=== PATIENT | female | born 1935 | race Caucasian/White ===

== ENCOUNTER 2020-06-01 10:31 | Emergency (ER) | payer MEDICARE, OTHER ==
[2020-06-01 10:42] VITALS: O2SAT 97
--- NOTE | 2020-06-01 10:56 | ERPHSYRPT ---
- History of Present Illness Time Seen by Provider: 06/01/20 10:53 Source: patient Exam Limitations: no limitations Patient Subjective Stated Complaint: L hip pain Triage Nursing Assessment: pt to ED c/o L hip pain rates 08/09. states hip replaced years ago and "it is causing me trouble now." no shortening or rotation noted. no bruising or other signs of injury. denies fall or any trauma to area. has appt scheduled for Tuesday with CJ Ewing. ambulatory with assistance. ambulates with a cane normally. pain worsening with ambulation. Physician History: Left hip pain for few days. c/o L hip pain rates 08/09. states hip replaced years ago and "it is causing me trouble now." no shortening or rotation noted. no bruising or other signs of injury. denies fall or any trauma to area. has appt scheduled for Tuesday with CJ Ewing. ambulatory with assistance. ambulates with a cane normally. pain worsening with ambulation. Method of Injury: unknown Occurred: last week Quality: constant Severity of Pain-Max: moderate Severity of Pain-Current: moderate Lower Extremities Pain: hip: left Modifying Factors: Improves With: nothing Associated Symptoms: none Allergies/Adverse Reactions: Iodinated Contrast Media Allergy (Verified 06/01/20 10:50) iodine Allergy (Verified 06/01/20 10:50) Penicillins Allergy (Verified 06/01/20 10:50) Home Medications: Alprazolam [Xanax] 0.5 mg PO [id number] PRN 06/01/20 [History] Aspirin 81 gm Chew [Baby Aspirin 81 mg Chew] 81 mg PO DAILY 06/01/20 [History] Carvedilol 25 mg PO BID 06/01/20 [History] Escitalopram Oxalate 10 mg [Lexapro 10 MG] 10 mg PO DAILY 06/01/20 [History] Furosemide 40 mg [Lasix 40 MG] 40 mg PO DAILY 06/01/20 [History] Isosorbide Mononitrate 30 mg PO DAILY 06/01/20 [History] Spironolact/Hydrochlorothiazid [Spironolactone-Hctz 25-25 Tab] 25 mg PO DAILY 06/01/20 [History] Hx Tetanus, Diphtheria Vaccination/Date Given: Yes Hx Influenza Vaccination/Date Given: Yes Hx Pneumococcal Vaccination/Date Given: No Immunizations Up to Date: Yes Travel Risk - International Travel Have you traveled outside of the country in past 3 weeks: No - Coronavirus Screening Are you exhibiting any of the following symptoms?: No Close contact with a COVID-19 positive Pt in past 14-21 Days: No - Review of Systems Constitutional: No Symptoms Eyes: No Symptoms Ears, Nose, & Throat: No Symptoms Respiratory: No Symptoms Cardiac: No Symptoms Abdominal/Gastrointestinal: No Symptoms Genitourinary Symptoms: No Symptoms Musculoskeletal: Arthralgias, Joint Pain (left hip), No Back Pain, No Deformity, No Fall, No Injury, No Joint Redness, No Joint Swelling - Past Medical History Neurological History: No Pertinent History Cardiac History: Coronary Artery Disease, High Cholesterol, Hypertension Respiratory History: No Pertinent History Endocrine Medical History: No Pertinent History Musculoskeletal History: Osteoarthritis, Other Other Medical History: 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 HX OF CARDIAC STENT X 1, CHOLECYSTECOMY, LEFT THR 2016, LUMBAR FUSION - Past Surgical History Past Surgical History: Yes Musculoskeletal: Joint Replacement, Orthopedic Surgery Other Surgical History: L hip - Social History Smoking Status: Never smoker Exposure to second hand smoke: No Drug Use: none Patient Lives Alone: No - Female History Hx Now: No - Nursing Vital Signs Nursing Vital Signs: Initial Vital Signs Temperature 98.2 F 06/01/20 10:34 Pulse Rate 72 06/01/20 10:34 Respiratory Rate 17 06/01/20 10:34 Blood Pressure 102/40 06/01/20 10:34 O2 Sat by Pulse Oximetry 97 06/01/20 10:34 Pain Scale Pain Intensity 10 - Physical Exam General Appearance: no apparent distress Eyes, Ears, Nose, Throat Exam: normal ENT inspection Neck Exam: normal inspection Cardiovascular/Respiratory Exam: chest non-tender Gastrointestinal/Abdominal Exam: non-tender Back Exam: normal inspection Hips Exam: left: pain, soft tissue tenderness Legs Exam: bilateral leg: non-tender Knees Exam: bilateral knee: non-tender Ankle Exam: bilateral ankle: non-tender Foot Exam: bilateral foot: non-tender DTR - Lower Extremities Exam: knee (R): 2+, knee (L): 2+, ankle (R): 2+, ankle (L): 2+ Neuro/Tendon Exam: normal sensation Mental Status Exam: alert, oriented x 3 Skin Exam: normal color SpO2 Interpretation: normal SpO2: 97 O2 Delivery: Room Air - Course Nursing assessment & vital signs reviewed: Yes - Radiology Exams Hip X-ray Interpretation: Reviewed by me, Negative, No Fracture, No Subluxation Ordered Tests: Active Orders 24 hr Category Date Time Status HIP UNI (2V) INCL PEL IF DONE Stat Exams 06/01/20 10:44 Taken - Progress Progress: unchanged, pain not gone completely Counseled pt/family regarding: diagnosis, need for follow-up, rad results - Departure Departure Disposition: Home Clinical Impression: Chronic left hip pain Condition: Stable Critical Care Time: No Referrals: GABRIEL HUNTER MD [Primary Care Provider] - [facility] [id number] Instructions: Contusion (DC), Hip Pain in Older People Additional Instructions: Discharge/Care Plan RAJANI HO was seen on 06/01/20 in the Emergency Room. The patient was counseled regarding Diagnosis,Lab results, Imaging studies, need for follow up and when to return to the Emergency Room. Prescriptions given: Discharge Note I have spoken with the patient and/or caregivers. I have explained the patient's condition, diagnosis and treatment plan based on the information available to me at this time. I have answered the patient's and/or caregiver's questions and addressed any concerns. The patient and/or caregivers have as good understanding of the patient's diagnosis, condition and treatment plan as can be expected at this point. The vital signs have been stable. The patient's condition is stable and appropriate for discharge from the emergency department. The patient will pursue further outpatient evaluation with the primary care physician or other designated or consulting physician as outlined in the discharge instructions. The patient and/or caregivers are agreeable to this plan of care and follow-up instructions have been explained in detail. The patient and/or caregivers have received these instruction. The patient/and or caregivers are aware that any significant change in condition or worsening of symptoms should prompt an immediate return to this or the closest emergency department or call 911. RAJANI HO was seen on 06/01/20 n the Emergency Room. At that time you were treated for an emergent condition, during your visit Laboratory, Radiology and/or other procedures may have been ordered. It is very important that you follow-up with your Primary Care Physician GABRIEL HUNTER V within the next 24-48 hours to review your Emergency Room visit and the final results of testing that was ordered. Some test results such as Urine Cultures, Blood Cultures, and other cultures if ordered will not be finalized for 24-48 hours. If you do not have a Primary Care Provider please call the medical records department at [phone] ext [phone] to obtain a copy of your results or you may sign into our patient portal to obtain these results by visiting us @ [email or web address] and completing the following steps: 1. Click on the Patient Portal link 2. Click the Patient Self Enrollment Link to complete the enrollment form and entering your 3. Once the enrollment form is completed you will receive an email with a temporary ID and password at the email address you provided. 4. Next choose a user name and password. Your user name must be at least 4 characters long and your password must be at least 4 characters long. 5. Choose a security question from the list and provide your answer to the question. If you already have signed into the Health Portal you may access your Health Care Information 23/05 by the following steps: 1. Login to our website @ [email or web address] 2. Enter your original user name and password. FAQS The [facility] Health Portal is an online tool that contains your Lab Results, Radiology Reports, Visit History, Discharge Instructions and Health Summary Lab and Radiology Results will not be available for 72 hours on the portal. The Portal is a secure site, passwords are encryted and URLs are re-written so they cannot be copied and pasted. You and authorized family members are the only ones who can access your Portal. Also there is a timeout feature that protects your information if you leave the Portal page open. If you have technical difficulty please use the Contact Us link on the page this will allow you to submit any questions you have regarding the Portal or you may contact the Medical Record Department at [phone] ext [phone].
[2020-06-01] MEDS ORDERED: TORAdol 30 mg Injection IM ONE (11:16)
[2020-06-01] MEDS ORDERED: TORAdol 30 mg Injection ONE (11:43)
[2020-06-01 11:50] VITALS: BP 150/66; PULSE 70
--- NOTE | 2020-06-01 20:07 | XRAY ---
Indication: Chronic left hip pain. Comparison: October 04, 2019. 2 view left hip again demonstrates total hip arthroplasty with intact bipolar prosthesis/acetabular screw, osteopenia, greater trochanter spurring, and lower lumbar fusion hardware. No new/acute bony, articular, or soft tissue abnormalities.
== END 2020-06-01 12:17 | disposition home or self-care (01) ==
LOC: ED 10:31
DX: M25.552 Pain in left hip (principal); G89.29 Other chronic pain; F45.42 Pain disorder with related psychological factors; Z96.642 Presence of left artificial hip joint
CPT/HCPCS: 73502; 96372; 99284; J1885

== ENCOUNTER 2022-04-18 12:23 | Emergency (ER) | payer MEDICARE, OTHER ==
[2022-04-18 12:38] VITALS: BP 195/95; PULSE 75; O2SAT 97
[2022-04-18] MEDS ORDERED: Adacel Vial IM ONE ×2 (13:22→13:24)
--- NOTE | 2022-04-18 13:24 | ERPHSYRPT ---
- History of Present Illness Time Seen by Provider: 04/18/22 12:27 Source: patient Exam Limitations: no limitations Patient Subjective Stated Complaint: Animal bite- racoon bite Triage Nursing Assessment: Patient ambulated back to ED with cane and sat on side of bed. Patient A+O X 3. Patient's skin pink, warm and dry. Patient complains of being bit on left hand, 3rd digit by a racoon. Patient was capturing the racoon to move to a different location when it bit her through the cage. Patient has small laceration 0.1 cm X 0.1cm noted to left hand 3rd digit. Patient complains of pain 2/10. Patient states the racoon is still alive and is in her car in a cage. Physician History: 86-year-old female unsure about tetanus status right-handed dominant presented in the ER after she was transporting raccoon in the cage and accidentally got bit on the left third/middle finger with a puncture wound. Minimal bleeding initially but no bleeding currently. Complaining of dull aching to sharp mild pain with palpation and movements. No bites anywhere else. Timing/Duration: today, resolved prior to arrival Quality: painful Severity: mild Location: hands Possible Causes: other Associated Symptoms: denies symptoms Allergies/Adverse Reactions: Iodinated Contrast Media Allergy (Verified 04/18/22 12:27) iodine Allergy (Verified 04/18/22 12:27) Penicillins Allergy (Verified 04/18/22 12:27) Home Medications: ALPRAZolam [Xanax] 0.5 mg PO [id number] PRN 06/01/20 [History] Aspirin 81 gm Chew [Baby Aspirin 81 mg Chew] 81 mg PO DAILY 06/01/20 [History] Escitalopram Oxalate [Lexapro 10 MG] 10 mg PO DAILY 06/01/20 [History] Furosemide 40 mg [Lasix 40 MG] 40 mg PO DAILY 06/01/20 [History] Isosorbide Mononitrate 30 mg PO DAILY 06/01/20 [History] Spironolact/Hydrochlorothiazid [Spironolactone-Hctz 25-25 Tab] 25 mg PO DAILY 06/01/20 [History] carvediloL [Carvedilol] 25 mg PO BID 06/01/20 [History] Hx Tetanus, Diphtheria Vaccination/Date Given: No Hx Influenza Vaccination/Date Given: Yes Hx Pneumococcal Vaccination/Date Given: No Immunizations Up to Date: Yes Travel Risk - International Travel Have you traveled outside of the country in past 3 weeks: No - Coronavirus Screening Are you exhibiting any of the following symptoms?: No Close contact with a COVID-19 positive Pt in past 14-21 Days: No - Vaccine Status Have you recieved a Covid-19 vaccination: Yes Multi [employer]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: Moderna - Vaccination Dates Date of 2cond Vaccination (if applicable): na - Review of Systems Constitutional: No Symptoms Respiratory: No Symptoms Cardiac: No Symptoms Abdominal/Gastrointestinal: No Symptoms Musculoskeletal: Injury Skin: Skin Lesions Neurological: No Symptoms Hematologic/Lymphatic: No Symptoms Immunological/Allergic: No Symptoms - Past Medical History Neurological History: No Pertinent History Cardiac History: Coronary Artery Disease, High Cholesterol, Hypertension Respiratory History: No Pertinent History Endocrine Medical History: Diabetes Type II Musculoskeletal History: Arthritis, Osteoporosis Other Medical History: 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 HX OF CARDIAC STENT X 1, CHOLECYSTECOMY, LEFT THR 2016, LUMBAR FUSION - Past Surgical History Past Surgical History: Yes Musculoskeletal: Joint Replacement, Orthopedic Surgery Other Surgical History: L hip - Social History Smoking Status: Never smoker Exposure to second hand smoke: No Drug Use: none Patient Lives Alone: No - Nursing Vital Signs Nursing Vital Signs: Initial Vital Signs Temperature 97.0 F 04/18/22 12:29 Pulse Rate 75 04/18/22 12:29 Respiratory Rate 18 04/18/22 12:29 Blood Pressure 195/95 04/18/22 12:29 O2 Sat by Pulse Oximetry 97 04/18/22 12:29 Pain Scale Pain Intensity 2 - Physical Exam General Appearance: no apparent distress, alert Ears, Nose, Throat Exam: normal ENT inspection Neck Exam: normal inspection Respiratory Exam: normal breath sounds, lungs clear Cardiovascular Exam: regular rate/rhythm, normal heart sounds Extremity Exam: lacerations (Puncture wound left hand third digit distal phalanx lateral aspect with no active bleeding. Minimal tenderness.), tenderness Neurologic Exam: alert, oriented x 3, cooperative Skin Exam: normal color SpO2 Interpretation: normal SpO2: 97 O2 Delivery: Room Air Ordered Tests: Medication Summary Discontinued Medications Generic Name Dose Route Start Last Admin Trade Name Freq PRN Reason Stop Dose Admin Diphtheria/Tetanus/Acell Pertussis 0.5 ml 04/18/22 13:22 04/18/22 13:25 Tdap --Diph,Pertuss(Acell),Tet Vac/Pf 0.5 Ml Vial IM 04/18/22 13:23 0.5 ml .ONCE ONE Administration Diphtheria/Tetanus/Acell Pertussis Confirm 04/18/22 13:24 Tdap --Diph,Pertuss(Acell),Tet Vac/Pf 0.5 Ml Vial Administered 04/18/22 13:25 Dose 0.5 ml IM .STK-MED ONE - Progress Progress: unchanged Progress Note: 04/18/22 13:23 Tetanus is updated. Patient is offered immunoglobulins and rabies vaccine which he does not want. Animal control and DNR is contacted and they will will observe the animal. As per up to date if animal is available like raccoon, no PEP is required until results are back. Discussed signs symptoms of worsening needing return to ER which she seems understanding. She will take animal to the DNR. Counseled pt/family regarding: diagnosis, need for follow-up - Departure Departure Disposition: Extended Care Facility Clinical Impression: Bitten by omar, initial encounter Condition: Stable Critical Care Time: No Referrals: АЛЕКСАНДР HODGE MD [Primary Care Provider] - Follow up/PCP as directed (1-2 days for reevaluation) Instructions: Animal Bites (DC) Additional Instructions: Take Tylenol as needed for pain. Keep it clean and dry. Take raccoon to animal control/DNR recommended by PD. Return to ER for increasing pain swelling, confusion, lethargy, not acting herself.
== END 2022-04-18 13:39 | disposition home or self-care (01) ==
LOC: ED 12:23
DX: S60.473A Other superficial bite of left middle finger, initial encounter (principal); W55.51XA Bitten by raccoon, initial encounter; I10 Essential (primary) hypertension; E78.5 Hyperlipidemia, unspecified; E11.9 Type 2 diabetes mellitus without complications; Z79.899 Other long term (current) drug therapy
CPT/HCPCS: 90471; 90715; 99283

== ENCOUNTER 2022-08-26 09:09 | Day surgery (SDC) | payer MEDICARE, OTHER ==
--- NOTE | 2022-08-24 11:24 | HP ---
DATE OF SURGERY: 08/26/2022 HISTORY OF PRESENT ILLNESS: The patient presents with complaints of rectal bleeding. The patient went on a ride of some sort and had to use the bathroom and apparently had put a lot of blood from the rectum into the toilet. Last colonoscopy was about eleven years ago. She is also complaining of a spot to the left side of the rectum or anal area that is irritated and burst at some point. The patient would like the anal area checked on exam for colonoscopy. PAST MEDICAL HISTORY: Hypertension. Prolapsed heart valve. Arthritis. PAST SURGICAL HISTORY: Cataracts. Hemorrhoidectomy. Hysterectomy. Cholecystectomy. ALLERGIES: PENICILLIN. IODINE. AMLODIPINE. CELEBREX. CLONIDINE. DIOVAN. LISINOPRIL. PRAVASTATIN. PROCARDIA. MEDICATIONS: Alprazolam, hydralazine, carvedilol, hydrochlorothiazide, Plavix, tramadol, aspirin, duloxetine, isosorbide, losartan. FAMILY HISTORY: None. SOCIAL HISTORY: Former smoker. Occasional alcohol. REVIEW OF SYSTEMS: CONSTITUTIONAL: Denies fever or chills. CHEST: Denies shortness of breath. CVS: Denies chest pain. ABDOMEN: Denies abdominal pain. Reports rectal bleeding. PHYSICAL EXAMINATION: GENERAL: No acute distress. CHEST: Nonlabored. No shortness of breath. CVS: Regular rate and rhythm. ABDOMEN: Soft. IMPRESSION: Rectal bleeding. PLAN: Colonoscopy with Dr. Harley Terrell. As dictated by Debbie Howe NP.
[2022-08-26] MEDS ORDERED: Lactated Ringers 1,000 ML IV ONE (09:17)
[2022-08-26] MEDS ORDERED: Lactated Ringers 1,000 ML IV SCH (10:00)
[2022-08-26] MEDS ORDERED: DIPRIVAN 200 MG/20 ML IV ONE (11:59)
[2022-08-26] MEDS ORDERED: Xylocaine-Mpf 2% 5 Ml Vial ONE (11:59)
[2022-08-26 12:32] VITALS: O2SAT 98
[2022-08-26 12:36] VITALS: BP 132/74; PULSE 68
--- NOTE | 2022-08-26 13:28 | OP ---
SURGERY DATE/TIME: 08/26/2022 1202 PREOPERATIVE DIAGNOSIS: Rectal bleeding. POSTOPERATIVE DIAGNOSIS: Bleeding from severe irritated internal and external hemorrhoids and diverticulosis. PROCEDURE: Colonoscopy complete to cecum. SURGEON: Harley Terrell M.D. ANESTHESIA: MAC. COMPLICATIONS: None. CONDITION: Stable. FINDINGS: Severe excoriated internal and external hemorrhoids. Severe diverticulosis of the sigmoid. INDICATION: A patient with rectal bleeding. She is 86. DESCRIPTION OF PROCEDURE: Taken to endoscopy. Routine positioning. Anal digital examination satisfactory. Scope introduced. The scope advanced to the cecum. There was some tediousness going through the sigmoid which was quite knuckled around, angulated, fairly small diameter and diverticula that were nearly finger size. With care and patience this was navigated. After this was navigated the rest of the colon was navigated readily. It certainly seems that the upper colon was excellent. The lower colon had diverticulosis. I think her bleeding was mostly from hemorrhoids and possibly some from diverticulosis.
== END 2022-08-26 12:46 | disposition home or self-care (01) ==
LOC: SDC 09:09
PROVIDERS: ATTEND Surgery
DX: K64.4 Residual hemorrhoidal skin tags (principal); K62.5 Hemorrhage of anus and rectum; K64.8 Other hemorrhoids; K57.30 Diverticulosis of large intestine without perforation or abscess without bleeding
CPT/HCPCS: 99100; J2704